=== PATIENT | female | born 1990 | race Caucasian/White ===

== ENCOUNTER 2024-08-09 22:52 | Emergency (ER) | payer MEDICAID, OTHER ==
[~2024-08-09] VITALS: Ht 154.9 cm; Wt 68.0 kg
[2024-08-09 23:29] VITALS: BP 120/60; TEMP 99.4; O2SAT 98
== END 2024-08-09 23:33 | disposition home or self-care (01) ==
LOC: ER 22:56
DX: M79.10 Myalgia, unspecified site (principal)